=== PATIENT | female | born 1935 | race African-American/Black ===

== ENCOUNTER 2020-09-28 00:21 | Inpatient (IN) | payer MEDICARE, OTHER ==
[~2020-09-28] VITALS: Ht 167.6 cm; Wt 78.5 kg
[2020-09-28] VITALS: BP 168/79
[~2020-09-28 00:21] MED LIST: ALLO100T PO; ASPI-1406 PO; CARV12.545 PO; DILT240C52 PO; FURO40TA5 PO; GABA-532 PO; GLIM2TAB30 PO; HYDR25TA PO; INSNOV SUBCUT; INSU3INS6 SUBCUT; OMEP40CA12 PO; POTA10TA11 PO; RAMI10CA68 PO; SIMV-46 PO; VALS160T28 PO
[2020-09-28] MEDS ORDERED: FUROSEMIDE 40MG/4ML VIAL IV ONE (01:00)
[2020-09-28 01:58] LABS: BASOPHILS % 0.5 % (0.0-2.0); EOSINOPHILS % 0.4 % (0.0-5.0); HEMATOCRIT. 32.2 % (36.0-48.0); HEMOGLOBIN. 10.2 g/dL (12.0-16.0); LYMPHOCYTES % 10.2 % (20.0-50.0); MEAN CORPUSCULAR HEMOGLOBIN 27.6 pg (28.0-32.0); MEAN CORPUSCULAR VOLUME 87.5 fL (81.0-99.0); MONOCYTES % 4.4 % (2.0-8.0); NEUTROPHILS % 84.5 % (40.0-76.0); PLATELET 212 x1000/uL (130-400); RED BLOOD CELL COUNT 3.68 mill/uL (4.2-5.4)
[2020-09-28 02:04] LABS: CHLORIDE 109 mEq/L (98-107)
[2020-09-28] MEDS ORDERED: LABETALOL 5MG/ML SYR 20 MG/4 ML SYRINGE IV SCH (04:15)
[2020-09-28] MEDS ORDERED: ASPIRIN 325MG EC TABLET PO SCH (04:15)
[2020-09-28] MEDS ORDERED: DEXAMETHASONE 10 MG/ML VIAL IV SCH (04:30)
[2020-09-28] MEDS ORDERED: HYDRALAZINE 20MG/ML VIAL IV PRN (06:15)
[2020-09-28] MEDS ORDERED: SIMV10TA97 MT (10:46)
[2020-09-28] MEDS ORDERED: DIPHENHYDRAMINE 50MG/ML VIAL IV PRN (11:00)
[2020-09-28] MEDS ORDERED: ACETAMINOPHEN 650MG SUPP PR PRN (11:00)
[2020-09-28] MEDS ORDERED: ONDANSETRON HCL 4MG/2ML INJ IV PRN (11:00)
[2020-09-28] MEDS ORDERED: LORAZEPAM 0.5MG TABLET PO PRN (11:00)
[2020-09-28] MEDS ORDERED: HYDROCODONE/ACETAMINOPHEN 5/325MG TABLET PO PRN (11:00)
[2020-09-28] MEDS ORDERED: DOCUSATE SODIUM 100MG CAPSULE PO PRN (11:00)
[2020-09-28] MEDS ORDERED: NA PHOS,M-B/NA PHOS,DI-BA ENEMA 118ML PR PRN (11:00)
[2020-09-28] MEDS ORDERED: MAGNESIUM/ALUMINUM HYDROXIDE/SIMETHICONE 30ML UDC PO PRN (11:00)
[2020-09-28] MEDS ORDERED: DEXTROSE 50% WATER 50ML SYRINGE IV PRN (11:00)
[2020-09-28 11:36] VITALS: BP 164/71
[2020-09-28] MEDS ORDERED: NALOXONE HCL 0.4MG/ML VIAL IV PRN (11:45)
[2020-09-28] MEDS: ALBUTEROL 6.7GM HFA INHALER ORI SCH ×2 (12:00→17:42)
[2020-09-28] MEDS ORDERED: ENOXAPARIN 30MG/0.3ML SYR SUBCUT SCH (12:00)
[2020-09-28] MEDS: DEXAMETHASONE 10 MG/ML VIAL IV SCH (12:15)
[2020-09-28] MEDS: AMLODIPINE 5MG TABLET PO SCH (12:15)
[2020-09-28 12:28] LABS: BG BASE EXCESS -2.6 mmol/L (-2.0-2.0); BG CARBOXYHEMOGLOBIN 0.3 % (0.5-1.5); BG DEOXYHEMOGLOBIN 7.6 % (0.0-5.0); BG FRACTION INSPIRED OXYGEN 32; BG METHEMOGLOBIN 0.2 % (0.0-1.5); BG OXYGEN SATURATION 92.4 % (92.0-98.5); BG OXYHEMOGLOBIN 91.9 % (94.0-97.0); BG PCO2 42.7 mmHg (35.0-45.0); BG PH 7.349 (7.350-7.450); BG PO2 65.3 mmHg (75.0-100.0); BG SAMPLE SITE LEFT RADIAL; BG TOTAL HEMOGLOBIN 11.5 g/dL (12.0-18.0); BG VENT MODE NASAL CANNULA
[2020-09-28] MEDS: INSULIN LISPRO 100 UNITS/ML SUBCUT SCH ×3 (12:38→20:46)
[2020-09-28] MEDS: BLOOD SUGAR DIAGNOSTIC STRIP TEST SCH ×3 (12:50→20:42)
[2020-09-28] MEDS: CEFTRIAXONE 1,000 MG in DEXTROSE 5% WATER 50 ML IV SCH (13:30)
[2020-09-28] MEDS: AZITHROMYCIN 500 MG in DEXT 5% WATER 250 ML IV SCH (13:30)
[2020-09-28 16:00] VITALS: BP 165/70
[2020-09-28 16:31] LABS: INR 1.1; PROTHROMBIN TIME 11.4 sec (9.6-11.0)
[2020-09-28 16:50] LABS: CREATINE KINASE MB FRACTION 3.7 ng/mL (0.5-3.6)
[2020-09-28] MEDS: HYDRALAZINE 20MG/ML VIAL IV PRN (17:02)
[2020-09-28 20:00] VITALS: BP 168/79
[2020-09-28] MEDS: CLONIDINE 0.1MG TABLET PO PRN (20:42)
[2020-09-28] MEDS: FAMOTIDINE 20MG TABLET PO SCH (20:42)
[2020-09-28 21:21] LABS: CLARITY URINE CLEAR (CLEAR); COLOR URINE YELLOW (YELLOW); KETONES URINE TRACE (NEGATIVE); LEUKOCYTE ESTERASE URINE NEGATIVE (NEGATIVE); NITRITE URINE NEGATIVE (NEGATIVE); OCCULT BLOOD URINE NEGATIVE (NEGATIVE); PROTEIN URINE 2+ (NEGATIVE); SPECIFIC GRAVITY URINE 1.014 (1.005-1.030); UROBILINOGEN URINE 0.2 E.U./dL (0.2-1.0)
[2020-09-28 21:52] LABS: *AMPHETAMINES SCREEN URINE NEGATIVE (NEGATIVE); *BARBITURATES SCREEN URINE NEGATIVE (NEGATIVE)
[2020-09-28 21:53] LABS: *BENZODIAZEPINES SCREEN URINE NEGATIVE (NEGATIVE); *COCAINE SCREEN URINE NEGATIVE (NEGATIVE); CANNABINOID URINE SCREEN NEGATIVE (NEGATIVE); METHADONE URINE SCREEN NEGATIVE (NEGATIVE); OPIATES URINE SCREEN NEGATIVE (NEGATIVE); PHENCYCLIDINE URINE SCREEN NEGATIVE (NEGATIVE)
[2020-09-29] VITALS (7 sets, daily range): BP systolic 123–184; BP diastolic 72–97
[2020-09-29 00:28] LABS: CREATINE KINASE MB FRACTION 3.1 ng/mL (0.5-3.6)
[2020-09-29] MEDS: HYDRALAZINE 20MG/ML VIAL IV PRN ×2 (01:53→08:02)
[2020-09-29] MEDS: ALBUTEROL 6.7GM HFA INHALER ORI SCH ×4 (05:43→17:24)
[2020-09-29 06:08] LABS: CHLORIDE 109 mEq/L (98-107)
[2020-09-29 06:16] LABS: BASOPHILS % 0.1 % (0.0-2.0); HEMATOCRIT. 31.4 % (36.0-48.0); HEMOGLOBIN. 10.2 g/dL (12.0-16.0); LYMPHOCYTES % 8.6 % (20.0-50.0); MEAN CORPUSCULAR HEMOGLOBIN 27.7 pg (28.0-32.0); MEAN CORPUSCULAR VOLUME 85.4 fL (81.0-99.0); MONOCYTES % 3.9 % (2.0-8.0); NEUTROPHILS % 87.4 % (40.0-76.0); PLATELET 217 x1000/uL (130-400); RED BLOOD CELL COUNT 3.68 mill/uL (4.2-5.4); RED CELL DISTRIBUTION WIDTH 16.7 % (11.6-14.6)
[2020-09-29 06:24] LABS: HDL CHOLESTEROL 69 mg/dL (40-59); LDL CHOLESTEROL 69 mg/dL (5-100); T4 FREE 1.02 ng/dL (0.76-1.46)
[2020-09-29] MEDS: BLOOD SUGAR DIAGNOSTIC STRIP TEST SCH ×4 (06:24→21:20)
[2020-09-29] MEDS: INSULIN LISPRO 100 UNITS/ML SUBCUT SCH ×4 (07:49→21:00)
[2020-09-29] MEDS: ASPIRIN 81MG EC TABLET PO SCH (08:01)
[2020-09-29] MEDS: FUROSEMIDE 40MG/4ML VIAL IV SCH (08:01)
[2020-09-29] MEDS: AMLODIPINE 5MG TABLET PO SCH ×2 (08:02→21:20)
[2020-09-29] MEDS: DEXAMETHASONE 10 MG/ML VIAL IV SCH (08:03)
[2020-09-29] MEDS ORDERED: POTASSIUM CHLORIDE 20MEQ TABLET SR PO SCH (10:45)
[2020-09-29 11:06] LABS: BG BASE EXCESS 0.9 mmol/L (-2.0-2.0); BG CARBOXYHEMOGLOBIN 0.3 % (0.5-1.5); BG DEOXYHEMOGLOBIN 8.8 % (0.0-5.0); BG HCO3 ACT 24.8 mmol/L (22.0-26.0); BG METHEMOGLOBIN 0.3 % (0.0-1.5); BG OXYGEN SATURATION 91.1 % (92.0-98.5); BG OXYHEMOGLOBIN 90.6 % (94.0-97.0); BG PCO2 36.8 mmHg (35.0-45.0); BG PH 7.446 (7.350-7.450); BG PO2 59.6 mmHg (75.0-100.0); BG SAMPLE SITE RIGHT BRACHIAL; BG TOTAL HEMOGLOBIN 11.4 g/dL (12.0-18.0); BG VENT MODE NASAL CANNULA
[2020-09-29] MEDS: ENOXAPARIN 80MG/0.8ML SYR SUBCUT SCH (11:17)
[2020-09-29] MEDS: CEFTRIAXONE 1,000 MG in DEXTROSE 5% WATER 50 ML IV SCH (12:45)
[2020-09-29] MEDS: AZITHROMYCIN 500 MG in DEXT 5% WATER 250 ML IV SCH (12:45)
[2020-09-29] MEDS: HYDRALAZINE HCL 50MG TABLET PO SCH ×2 (13:04→21:20)
[2020-09-29] MEDS: FAMOTIDINE 20MG TABLET PO SCH (21:19)
[2020-09-30] VITALS (10 sets, daily range): BP systolic 138–189; BP diastolic 73–101
[2020-09-30] MEDS: ALBUTEROL 6.7GM HFA INHALER ORI SCH ×4 (01:04→17:08)
[2020-09-30] MEDS: HYDRALAZINE 20MG/ML VIAL IV PRN ×2 (01:06→10:05)
[2020-09-30] MEDS: CLONIDINE 0.1MG TABLET PO PRN (06:25)
[2020-09-30] MEDS: HYDRALAZINE HCL 50MG TABLET PO SCH ×2 (06:25→13:10)
[2020-09-30] MEDS: BLOOD SUGAR DIAGNOSTIC STRIP TEST SCH ×4 (07:40→21:33)
[2020-09-30] MEDS: INSULIN LISPRO 100 UNITS/ML SUBCUT SCH ×4 (08:10→21:40)
[2020-09-30 08:24] LABS: PROTHROMBIN TIME 11.1 sec (9.6-11.0)
[2020-09-30] MEDS: FUROSEMIDE 40MG/4ML VIAL IV SCH (08:35)
[2020-09-30] MEDS: DEXAMETHASONE 10 MG/ML VIAL IV SCH (08:35)
[2020-09-30] MEDS: ASPIRIN 81MG EC TABLET PO SCH (08:35)
[2020-09-30] MEDS: AMLODIPINE 5MG TABLET PO SCH ×2 (08:36→21:33)
[2020-09-30] MEDS: ENOXAPARIN 80MG/0.8ML SYR SUBCUT SCH (10:04)
[2020-09-30] MEDS: CEFTRIAXONE 1,000 MG in DEXTROSE 5% WATER 50 ML IV SCH (11:30)
[2020-09-30] MEDS: AZITHROMYCIN 500 MG in DEXT 5% WATER 250 ML IV SCH (12:00)
[2020-09-30] MEDS: HYDRALAZINE HCL 100MG TABLET PO SCH ×2 (14:38→21:33)
[2020-09-30] MEDS: FAMOTIDINE 20MG TABLET PO SCH (21:33)
[2020-10-01] VITALS (9 sets, daily range): BP systolic 158–188; BP diastolic 74–94
[2020-10-01] MEDS: HYDRALAZINE 20MG/ML VIAL IV PRN ×2 (00:29→08:38)
[2020-10-01] MEDS: ALBUTEROL 6.7GM HFA INHALER ORI SCH ×5 (00:30→23:39)
[2020-10-01] MEDS: HYDRALAZINE HCL 100MG TABLET PO SCH ×3 (05:44→21:09)
[2020-10-01] MEDS: CLONIDINE 0.1MG TABLET PO PRN (05:45)
[2020-10-01] MEDS: BLOOD SUGAR DIAGNOSTIC STRIP TEST SCH ×4 (07:40→21:11)
[2020-10-01] MEDS: INSULIN LISPRO 100 UNITS/ML SUBCUT SCH ×4 (08:10→21:11)
[2020-10-01] MEDS: ASPIRIN 81MG EC TABLET PO SCH (08:37)
[2020-10-01] MEDS: FUROSEMIDE 40MG/4ML VIAL IV SCH (08:37)
[2020-10-01] MEDS: AMLODIPINE 5MG TABLET PO SCH ×2 (08:38→21:08)
[2020-10-01] MEDS: DEXAMETHASONE 10 MG/ML VIAL IV SCH (08:38)
[2020-10-01] MEDS: ENOXAPARIN 80MG/0.8ML SYR SUBCUT SCH (10:41)
[2020-10-01] MEDS ORDERED: CLONIDINE 0.1MG TABLET PO NR (11:23)
[2020-10-01] MEDS: CEFTRIAXONE 1,000 MG in DEXTROSE 5% WATER 50 ML IV SCH (11:30)
[2020-10-01] MEDS: AZITHROMYCIN 500 MG in DEXT 5% WATER 250 ML IV SCH (12:00)
[2020-10-01 13:42] LABS: HEMATOCRIT. 34.1 % (36.0-48.0); HEMOGLOBIN. 10.8 g/dL (12.0-16.0); MEAN CORPUSCULAR HEMOGLOBIN 27.3 pg (28.0-32.0); MEAN CORPUSCULAR VOLUME 86.2 fL (81.0-99.0); MEAN PLATELET VOLUME 8.9 fl (7.4-10.4); PLATELET 214 x1000/uL (130-400); RED BLOOD CELL COUNT 3.95 mill/uL (4.2-5.4); RED CELL DISTRIBUTION WIDTH 16.9 % (11.6-14.6)
[2020-10-01] MEDS: CLONIDINE 0.1MG TABLET PO SCH ×2 (14:00→21:10)
[2020-10-01] MEDS ORDERED: POTASSIUM CHLORIDE 20MEQ/PACKET PO NR (16:00)
[2020-10-01] MEDS: FAMOTIDINE 20MG TABLET PO SCH (21:09)
[2020-10-02] VITALS: BP 160/87
[2020-10-02 00:27] LABS: PLATELET ESTIMATE NORMAL
[2020-10-02 04:00] VITALS: BP 156/78
[2020-10-02] MEDS: CLONIDINE 0.1MG TABLET PO SCH ×3 (06:07→22:28)
[2020-10-02] MEDS: ALBUTEROL 6.7GM HFA INHALER ORI SCH ×3 (06:07→18:05)
[2020-10-02] MEDS: HYDRALAZINE HCL 100MG TABLET PO SCH ×3 (06:07→22:28)
[2020-10-02 08:00] VITALS: BP 169/90
[2020-10-02] MEDS: INSULIN LISPRO 100 UNITS/ML SUBCUT SCH ×4 (08:03→21:35)
[2020-10-02] MEDS: ASPIRIN 81MG EC TABLET PO SCH (08:04)
[2020-10-02] MEDS: FUROSEMIDE 40MG/4ML VIAL IV SCH (08:04)
[2020-10-02] MEDS: DEXAMETHASONE 10 MG/ML VIAL IV SCH (08:05)
[2020-10-02] MEDS: AMLODIPINE 5MG TABLET PO SCH ×2 (08:08→21:34)
[2020-10-02] MEDS: BLOOD SUGAR DIAGNOSTIC STRIP TEST SCH ×4 (08:22→21:35)
[2020-10-02] MEDS: CEFTRIAXONE 1,000 MG in DEXTROSE 5% WATER 50 ML IV SCH (11:54)
[2020-10-02] MEDS: ENOXAPARIN 80MG/0.8ML SYR SUBCUT SCH (11:55)
[2020-10-02 12:00] VITALS: BP 166/92
[2020-10-02] MEDS: AZITHROMYCIN 500 MG in DEXT 5% WATER 250 ML IV SCH (13:57)
[2020-10-02 16:00] VITALS: BP 158/86
[2020-10-02] MEDS ORDERED: INSULIN GLARGINE UD 100 UNITS/ML SYR SUBCUT NR (17:50)
[2020-10-02] MEDS ORDERED: INSULIN LISPRO 100 UNITS/ML SUBCUT NR (18:00)
[2020-10-02 20:00] VITALS: BP 147/83
[2020-10-02] MEDS: FAMOTIDINE 20MG TABLET PO SCH (21:33)
[2020-10-03] VITALS: BP 155/85
[2020-10-03 04:00] VITALS: BP 161/78
[2020-10-03] MEDS: HYDRALAZINE HCL 100MG TABLET PO SCH ×3 (05:11→21:21)
[2020-10-03] MEDS: CLONIDINE 0.1MG TABLET PO SCH ×3 (05:11→21:22)
[2020-10-03] MEDS: ALBUTEROL 6.7GM HFA INHALER ORI SCH ×5 (05:12→23:23)
[2020-10-03] MEDS: INSULIN LISPRO 100 UNITS/ML SUBCUT SCH ×4 (06:41→21:00)
[2020-10-03] MEDS: BLOOD SUGAR DIAGNOSTIC STRIP TEST SCH ×4 (06:41→21:20)
[2020-10-03 06:49] LABS: CHLORIDE 104 mEq/L (98-107)
[2020-10-03 06:54] LABS: HEMATOCRIT. 36.3 % (36.0-48.0); HEMOGLOBIN. 11.4 g/dL (12.0-16.0); MEAN CORPUSCULAR HEMOGLOBIN 27.1 pg (28.0-32.0); MEAN CORPUSCULAR VOLUME 85.8 fL (81.0-99.0); MEAN PLATELET VOLUME 9.6 fl (7.4-10.4); PLATELET 207 x1000/uL (130-400); RED BLOOD CELL COUNT 4.22 mill/uL (4.2-5.4); RED CELL DISTRIBUTION WIDTH 16.5 % (11.6-14.6)
[2020-10-03 08:00] VITALS: BP 169/79
[2020-10-03] MEDS: AMLODIPINE 5MG TABLET PO SCH ×2 (08:58→21:21)
[2020-10-03] MEDS: FUROSEMIDE 40MG/4ML VIAL IV SCH (08:58)
[2020-10-03] MEDS: ASPIRIN 81MG EC TABLET PO SCH (08:58)
[2020-10-03] MEDS: ENOXAPARIN 80MG/0.8ML SYR SUBCUT SCH (11:37)
[2020-10-03] MEDS: CEFTRIAXONE 1,000 MG in DEXTROSE 5% WATER 50 ML IV SCH (11:37)
[2020-10-03 12:00] VITALS: BP 169/82
[2020-10-03] MEDS ORDERED: POTASSIUM CHLORIDE 20MEQ TABLET SR PO NR (14:30)
[2020-10-03 14:58] LABS: BG DEOXYHEMOGLOBIN 12.6 % (0.0-5.0); BG FRACTION INSPIRED OXYGEN 28; BG HCO3 ACT 32.6 mmol/L (22.0-26.0); BG METHEMOGLOBIN 0.1 % (0.0-1.5); BG OXYGEN SATURATION 87.3 % (92.0-98.5); BG OXYHEMOGLOBIN 86.3 % (94.0-97.0); BG PCO2 40.6 mmHg (35.0-45.0); BG PH 7.522 (7.350-7.450); BG PO2 50.3 mmHg (75.0-100.0); BG SAMPLE SITE LEFT BRACHIAL; BG TOTAL HEMOGLOBIN 12.5 g/dL (12.0-18.0); BG VENT MODE NASAL CANNULA
[2020-10-03 16:00] VITALS: BP 172/86
[2020-10-03 20:00] VITALS: BP 190/99
[2020-10-03] MEDS: FAMOTIDINE 20MG TABLET PO SCH (21:22)
[2020-10-03 22:54] LABS: PLATELET ESTIMATE NORMAL
[2020-10-03] MEDS: ACETAMINOPHEN 325MG TABLET PO PRN (23:59)
[2020-10-03] MEDS: HYDRALAZINE 20MG/ML VIAL IV PRN (23:59)
[2020-10-04] VITALS: BP 165/94
[2020-10-04 04:00] VITALS: BP 167/86
[2020-10-04] MEDS: HYDRALAZINE HCL 100MG TABLET PO SCH ×3 (05:08→20:50)
[2020-10-04] MEDS: CLONIDINE 0.1MG TABLET PO SCH ×3 (05:08→20:51)
[2020-10-04] MEDS: ALBUTEROL 6.7GM HFA INHALER ORI SCH ×3 (05:08→18:00)
[2020-10-04 06:57] LABS: HEMATOCRIT. 37.9 % (36.0-48.0); HEMOGLOBIN. 11.7 g/dL (12.0-16.0); MEAN CORPUSCULAR HEMOGLOBIN 27.4 pg (28.0-32.0); MEAN CORPUSCULAR VOLUME 88.7 fL (81.0-99.0); MEAN PLATELET VOLUME 9.7 fl (7.4-10.4); PLATELET 170 x1000/uL (130-400); RED BLOOD CELL COUNT 4.27 mill/uL (4.2-5.4); RED CELL DISTRIBUTION WIDTH 17.1 % (11.6-14.6)
[2020-10-04 08:00] VITALS: BP 175/88
[2020-10-04] MEDS: BLOOD SUGAR DIAGNOSTIC STRIP TEST SCH ×4 (08:14→20:51)
[2020-10-04] MEDS ORDERED: DEXAMETHASONE 10 MG/ML VIAL IV SCH (09:00)
[2020-10-04] MEDS: FUROSEMIDE 40MG/4ML VIAL IV SCH (09:49)
[2020-10-04] MEDS: ASPIRIN 81MG EC TABLET PO SCH (09:50)
[2020-10-04] MEDS: AMLODIPINE 5MG TABLET PO SCH ×2 (09:50→20:51)
[2020-10-04] MEDS: ENOXAPARIN 80MG/0.8ML SYR SUBCUT SCH (09:53)
[2020-10-04] MEDS: INSULIN LISPRO 100 UNITS/ML SUBCUT SCH ×4 (09:54→20:52)
[2020-10-04 12:00] VITALS: BP 160/86
[2020-10-04] MEDS: ACETAMINOPHEN 325MG TABLET PO PRN (13:01)
[2020-10-04 16:00] VITALS: BP 148/79
[2020-10-04 16:56] LABS: PLATELET ESTIMATE NORMAL
[2020-10-04 17:04] LABS: BG BASE EXCESS 6.4 mmol/L (-2.0-2.0); BG CARBOXYHEMOGLOBIN 0.7 % (0.5-1.5); BG DEOXYHEMOGLOBIN 8.9 % (0.0-5.0); BG FRACTION INSPIRED OXYGEN 60; BG HCO3 ACT 30.2 mmol/L (22.0-26.0); BG METHEMOGLOBIN 0.2 % (0.0-1.5); BG OXYHEMOGLOBIN 90.2 % (94.0-97.0); BG PCO2 40.3 mmHg (35.0-45.0); BG PH 7.493 (7.350-7.450); BG PO2 58.1 mmHg (75.0-100.0); BG SAMPLE SITE LEFT RADIAL; BG TOTAL HEMOGLOBIN 13.9 g/dL (12.0-18.0); BG VENT MODE MASK - SIMPLE
[2020-10-04 20:00] VITALS: BP 157/85
[2020-10-04] MEDS: CARVEDILOL 3.125 MG TABLET PO SCH (20:50)
[2020-10-04] MEDS: FAMOTIDINE 20MG TABLET PO SCH (20:50)
[2020-10-04] MEDS: ATORVASTATIN CALCIUM 10MG TABLET PO SCH (20:50)
[2020-10-05] VITALS: BP 157/69
[2020-10-05] MEDS: ALBUTEROL 6.7GM HFA INHALER ORI SCH ×4 (00:18→17:33)
[2020-10-05 04:00] VITALS: BP 152/80
[2020-10-05] MEDS: BLOOD SUGAR DIAGNOSTIC STRIP TEST SCH ×4 (05:17→21:05)
[2020-10-05] MEDS: CLONIDINE 0.1MG TABLET PO SCH ×3 (05:17→21:04)
[2020-10-05] MEDS: HYDRALAZINE HCL 100MG TABLET PO SCH ×3 (05:17→21:04)
[2020-10-05 06:07] LABS: HEMATOCRIT. 35.6 % (36.0-48.0); HEMOGLOBIN. 11.4 g/dL (12.0-16.0); MEAN CORPUSCULAR HEMOGLOBIN 27.5 pg (28.0-32.0); MEAN CORPUSCULAR VOLUME 86.3 fL (81.0-99.0); PLATELET 202 x1000/uL (130-400); RED BLOOD CELL COUNT 4.13 mill/uL (4.2-5.4); RED CELL DISTRIBUTION WIDTH 17.1 % (11.6-14.6)
[2020-10-05 08:00] VITALS: BP 163/82
[2020-10-05] MEDS: CARVEDILOL 3.125 MG TABLET PO SCH ×2 (08:38→21:04)
[2020-10-05] MEDS: AMLODIPINE 5MG TABLET PO SCH ×2 (08:38→21:03)
[2020-10-05] MEDS: FUROSEMIDE 40MG/4ML VIAL IV SCH ×2 (08:38→21:05)
[2020-10-05] MEDS: ASPIRIN 81MG EC TABLET PO SCH (08:38)
[2020-10-05] MEDS: INSULIN LISPRO 100 UNITS/ML SUBCUT SCH ×4 (08:39→21:05)
[2020-10-05 09:09] LABS: PLATELET ESTIMATE NORMAL
[2020-10-05 11:59] LABS: BG BASE EXCESS 8.4 mmol/L (-2.0-2.0); BG CARBOXYHEMOGLOBIN 0.5 % (0.5-1.5); BG DEOXYHEMOGLOBIN 15.3 % (0.0-5.0); BG FRACTION INSPIRED OXYGEN 36; BG HCO3 ACT 32.4 mmol/L (22.0-26.0); BG METHEMOGLOBIN 0.1 % (0.0-1.5); BG OXYGEN SATURATION 84.6 % (92.0-98.5); BG OXYHEMOGLOBIN 84.1 % (94.0-97.0); BG PCO2 42.5 mmHg (35.0-45.0); BG PO2 46.5 mmHg (75.0-100.0); BG SAMPLE SITE LEFT RADIAL; BG TOTAL HEMOGLOBIN 12.4 g/dL (12.0-18.0); BG VENT MODE NASAL CANNULA
[2020-10-05 12:00] VITALS: BP 170/88
[2020-10-05] MEDS: ENOXAPARIN 80MG/0.8ML SYR SUBCUT SCH (12:40)
[2020-10-05 16:00] VITALS: BP_SYST 114; BP_SYST 180; BP_DIAS 73; BP_DIAS 86
[2020-10-05] MEDS ORDERED: INSULIN GLARGINE UD 100 UNITS/ML SYR SUBCUT NR (16:00)
[2020-10-05] MEDS: LOSARTAN POTASSIUM 50 MG TABLET PO SCH (17:31)
[2020-10-05] MEDS: DEXAMETHASONE 4MG/ML 1ML VIAL IV SCH (17:31)
[2020-10-05] MEDS: HYDRALAZINE 20MG/ML VIAL IV PRN (18:23)
[2020-10-05 20:00] VITALS: BP 165/75
[2020-10-05] MEDS: ATORVASTATIN CALCIUM 10MG TABLET PO SCH (21:03)
[2020-10-05] MEDS: IVERMECTIN 3 MG TABLET PO SCH (21:04)
[2020-10-05] MEDS: FAMOTIDINE 20MG TABLET PO SCH (21:04)
[2020-10-06] VITALS: BP 142/88
[2020-10-06] MEDS: ALBUTEROL 6.7GM HFA INHALER ORI SCH ×5 (00:19→23:54)
[2020-10-06 04:00] VITALS: BP 159/91
[2020-10-06] MEDS: BLOOD SUGAR DIAGNOSTIC STRIP TEST SCH ×4 (05:39→20:44)
[2020-10-06] MEDS: CLONIDINE 0.1MG TABLET PO SCH ×3 (05:39→22:07)
[2020-10-06] MEDS: HYDRALAZINE HCL 100MG TABLET PO SCH ×3 (05:39→22:07)
[2020-10-06 07:14] LABS: HEMATOCRIT. 38.2 % (36.0-48.0); HEMOGLOBIN. 12.1 g/dL (12.0-16.0); MEAN CORPUSCULAR HEMOGLOBIN 27.3 pg (28.0-32.0); MEAN CORPUSCULAR VOLUME 86.1 fL (81.0-99.0); MEAN PLATELET VOLUME 9.8 fl (7.4-10.4); PLATELET 271 x1000/uL (130-400); RED BLOOD CELL COUNT 4.43 mill/uL (4.2-5.4)
[2020-10-06 08:00] VITALS: BP 161/98
[2020-10-06 08:06] LABS: BG BASE EXCESS 9.5 mmol/L (-2.0-2.0); BG CARBOXYHEMOGLOBIN 0.4 % (0.5-1.5); BG DEOXYHEMOGLOBIN 17.8 % (0.0-5.0); BG FRACTION INSPIRED OXYGEN 40; BG HCO3 ACT 33.6 mmol/L (22.0-26.0); BG METHEMOGLOBIN 0.2 % (0.0-1.5); BG OXYGEN SATURATION 82.1 % (92.0-98.5); BG OXYHEMOGLOBIN 81.6 % (94.0-97.0); BG PCO2 43.6 mmHg (35.0-45.0); BG PH 7.505 (7.350-7.450); BG PO2 43.8 mmHg (75.0-100.0); BG SAMPLE SITE LEFT BRACHIAL; BG TOTAL HEMOGLOBIN 13.3 g/dL (12.0-18.0); BG VENT MODE NASAL CANNULA
[2020-10-06 08:57] LABS: PLATELET ESTIMATE NORMAL
[2020-10-06] MEDS ORDERED: POTASSIUM CHLORIDE 20MEQ TABLET SR PO NR (09:15)
[2020-10-06] MEDS: ENOXAPARIN 80MG/0.8ML SYR SUBCUT SCH (10:10)
[2020-10-06] MEDS: ASPIRIN 81MG EC TABLET PO SCH (10:11)
[2020-10-06] MEDS: AMLODIPINE 5MG TABLET PO SCH ×2 (10:11→20:34)
[2020-10-06] MEDS: LOSARTAN POTASSIUM 50 MG TABLET PO SCH (10:11)
[2020-10-06] MEDS: CARVEDILOL 3.125 MG TABLET PO SCH ×2 (10:11→20:34)
[2020-10-06] MEDS: DEXAMETHASONE 4MG/ML 1ML VIAL IV SCH (10:12)
[2020-10-06] MEDS: FUROSEMIDE 40MG/4ML VIAL IV SCH (10:17)
[2020-10-06] MEDS: INSULIN GLARGINE UD 100 UNITS/ML SYR SUBCUT SCH (10:18)
[2020-10-06] MEDS: INSULIN LISPRO 100 UNITS/ML SUBCUT SCH ×4 (10:18→20:44)
[2020-10-06 12:00] VITALS: BP 146/91
[2020-10-06] MEDS: IVERMECTIN 3 MG TABLET PO SCH (14:05)
[2020-10-06 16:00] VITALS: BP 124/77
[2020-10-06] MEDS: GUAIFENESIN 200MG/10ML SUGAR FREE UDC PO PRN (17:41)
[2020-10-06 20:00] VITALS: BP 181/103
[2020-10-06] MEDS: ATORVASTATIN CALCIUM 10MG TABLET PO SCH (20:34)
[2020-10-06] MEDS: FAMOTIDINE 20MG TABLET PO SCH (20:34)
[2020-10-07] VITALS (27 sets, daily range): BP systolic 118–181; BP diastolic 63–110
[2020-10-07] MEDS: HYDRALAZINE 20MG/ML VIAL IV PRN (01:36)
[2020-10-07] MEDS: HYDRALAZINE HCL 100MG TABLET PO SCH ×3 (05:43→21:01)
[2020-10-07] MEDS: CLONIDINE 0.1MG TABLET PO SCH ×3 (05:43→21:02)
[2020-10-07] MEDS: ALBUTEROL 6.7GM HFA INHALER ORI SCH ×2 (05:44→12:46)
[2020-10-07] MEDS: BLOOD SUGAR DIAGNOSTIC STRIP TEST SCH ×4 (06:54→20:59)
[2020-10-07 07:45] LABS: HEMATOCRIT. 37.4 % (36.0-48.0); HEMOGLOBIN. 11.6 g/dL (12.0-16.0); MEAN CORPUSCULAR HEMOGLOBIN 26.8 pg (28.0-32.0); MEAN CORPUSCULAR VOLUME 85.9 fL (81.0-99.0); MEAN PLATELET VOLUME 9.5 fl (7.4-10.4); PLATELET 255 x1000/uL (130-400); RED BLOOD CELL COUNT 4.35 mill/uL (4.2-5.4); RED CELL DISTRIBUTION WIDTH 17.1 % (11.6-14.6)
[2020-10-07] MEDS: DEXAMETHASONE 4MG/ML 1ML VIAL IV SCH (08:53)
[2020-10-07] MEDS: INSULIN LISPRO 100 UNITS/ML SUBCUT SCH ×4 (08:53→21:00)
[2020-10-07] MEDS: FUROSEMIDE 40MG/4ML VIAL IV SCH (08:53)
[2020-10-07] MEDS: LOSARTAN POTASSIUM 50 MG TABLET PO SCH (08:54)
[2020-10-07] MEDS: POTASSIUM CHLORIDE 20MEQ TABLET SR PO SCH (08:54)
[2020-10-07] MEDS: ASPIRIN 81MG EC TABLET PO SCH (08:54)
[2020-10-07] MEDS: CARVEDILOL 3.125 MG TABLET PO SCH ×2 (08:54→21:01)
[2020-10-07] MEDS: AMLODIPINE 5MG TABLET PO SCH ×2 (08:55→21:01)
[2020-10-07 09:39] LABS: BG BASE EXCESS 8.1 mmol/L (-2.0-2.0); BG CARBOXYHEMOGLOBIN 0.5 % (0.5-1.5); BG DEOXYHEMOGLOBIN 12.4 % (0.0-5.0); BG HCO3 ACT 32.3 mmol/L (22.0-26.0); BG METHEMOGLOBIN 0.1 % (0.0-1.5); BG OXYGEN SATURATION 87.5 % (92.0-98.5); BG PCO2 42.8 mmHg (35.0-45.0); BG PH 7.495 (7.350-7.450); BG PO2 51.6 mmHg (75.0-100.0); BG SAMPLE SITE RIGHT BRACHIAL; BG TOTAL HEMOGLOBIN 12.8 g/dL (12.0-18.0); BG VENT MODE MASK - SIMPLE
[2020-10-07] MEDS: INSULIN GLARGINE UD 100 UNITS/ML SYR SUBCUT SCH (09:59)
[2020-10-07] MEDS: ENOXAPARIN 80MG/0.8ML SYR SUBCUT SCH (10:00)
[2020-10-07 10:46] LABS: PLATELET ESTIMATE NORMAL
[2020-10-07] MEDS: IVERMECTIN 3 MG TABLET PO SCH (13:09)
[2020-10-07] MEDS: FAMOTIDINE 20MG TABLET PO SCH (21:00)
[2020-10-07] MEDS: ATORVASTATIN CALCIUM 10MG TABLET PO SCH (21:00)
[2020-10-08] VITALS (44 sets, daily range): BP systolic 88–171; BP diastolic 54–112
[2020-10-08] MEDS: HYDRALAZINE HCL 100MG TABLET PO SCH ×3 (05:46→22:02)
[2020-10-08] MEDS: CLONIDINE 0.1MG TABLET PO SCH ×3 (05:47→22:03)
[2020-10-08 05:48] LABS: HEMATOCRIT. 36.4 % (36.0-48.0); HEMOGLOBIN. 11.6 g/dL (12.0-16.0); MEAN CORPUSCULAR VOLUME 84.8 fL (81.0-99.0); MEAN PLATELET VOLUME 9.7 fl (7.4-10.4); PLATELET 295 x1000/uL (130-400); RED BLOOD CELL COUNT 4.29 mill/uL (4.2-5.4)
[2020-10-08] MEDS: ALBUTEROL 6.7GM HFA INHALER ORI SCH ×3 (06:00→22:02)
[2020-10-08] MEDS: INSULIN LISPRO 100 UNITS/ML SUBCUT SCH ×4 (06:02→20:53)
[2020-10-08] MEDS: BLOOD SUGAR DIAGNOSTIC STRIP TEST SCH ×4 (06:02→20:52)
[2020-10-08 09:21] LABS: BG BASE EXCESS 6.7 mmol/L (-2.0-2.0); BG CARBOXYHEMOGLOBIN 0.2 % (0.5-1.5); BG DEOXYHEMOGLOBIN 5.7 % (0.0-5.0); BG FRACTION INSPIRED OXYGEN 99.8; BG HCO3 ACT 31.2 mmol/L (22.0-26.0); BG METHEMOGLOBIN 0.3 % (0.0-1.5); BG OXYGEN SATURATION 94.3 % (92.0-98.5); BG OXYHEMOGLOBIN 93.8 % (94.0-97.0); BG PCO2 44.1 mmHg (35.0-45.0); BG PH 7.467 (7.350-7.450); BG PO2 70.3 mmHg (75.0-100.0); BG SAMPLE SITE RIGHT RADIAL; BG TOTAL HEMOGLOBIN 12.5 g/dL (12.0-18.0); BG VENT MODE MASK - NRB
[2020-10-08] MEDS: DEXAMETHASONE 4MG/ML 1ML VIAL IV SCH (09:24)
[2020-10-08] MEDS: LOSARTAN POTASSIUM 50 MG TABLET PO SCH (09:25)
[2020-10-08] MEDS: AMLODIPINE 5MG TABLET PO SCH ×2 (09:25→20:51)
[2020-10-08] MEDS: POTASSIUM CHLORIDE 20MEQ TABLET SR PO SCH (09:25)
[2020-10-08] MEDS: ASPIRIN 81MG EC TABLET PO SCH (09:25)
[2020-10-08] MEDS: CARVEDILOL 3.125 MG TABLET PO SCH ×2 (09:25→20:52)
[2020-10-08] MEDS: FUROSEMIDE 40MG/4ML VIAL IV SCH (09:27)
[2020-10-08] MEDS: INSULIN GLARGINE UD 100 UNITS/ML SYR SUBCUT SCH (09:33)
[2020-10-08] MEDS: ENOXAPARIN 80MG/0.8ML SYR SUBCUT SCH (11:39)
[2020-10-08 12:32] LABS: PLATELET ESTIMATE NORMAL
[2020-10-08] MEDS: IVERMECTIN 3 MG TABLET PO SCH (13:23)
[2020-10-08] MEDS: ATORVASTATIN CALCIUM 10MG TABLET PO SCH (20:51)
[2020-10-08] MEDS: FAMOTIDINE 20MG TABLET PO SCH (20:52)
[2020-10-09] VITALS: BP 123/67
[2020-10-09] MEDS ORDERED: SODIUM CHLORIDE 0.45% 1,000 ML IV SCH (01:00)
[2020-10-09 04:00] VITALS: BP 125/82
[2020-10-09] MEDS: ALBUTEROL 6.7GM HFA INHALER ORI SCH ×3 (05:49→17:42)
[2020-10-09] MEDS: CLONIDINE 0.1MG TABLET PO SCH ×2 (05:50→13:34)
[2020-10-09] MEDS: HYDRALAZINE HCL 100MG TABLET PO SCH ×2 (05:51→13:34)
[2020-10-09] MEDS: BLOOD SUGAR DIAGNOSTIC STRIP TEST SCH ×4 (07:40→21:06)
[2020-10-09 08:00] VITALS: BP 141/86
[2020-10-09] MEDS: INSULIN LISPRO 100 UNITS/ML SUBCUT SCH ×4 (08:10→21:18)
[2020-10-09 08:57] LABS: HEMATOCRIT. 39.5 % (36.0-48.0); HEMOGLOBIN. 12.1 g/dL (12.0-16.0); MEAN CORPUSCULAR HEMOGLOBIN 26.5 pg (28.0-32.0); MEAN CORPUSCULAR VOLUME 86.4 fL (81.0-99.0); MEAN PLATELET VOLUME 9.7 fl (7.4-10.4); PLATELET 296 x1000/uL (130-400); RED BLOOD CELL COUNT 4.58 mill/uL (4.2-5.4)
[2020-10-09] MEDS: ASPIRIN 81MG EC TABLET PO SCH (10:17)
[2020-10-09] MEDS: DEXAMETHASONE 4MG/ML 1ML VIAL IV SCH (10:18)
[2020-10-09] MEDS: POTASSIUM CHLORIDE 20MEQ TABLET SR PO SCH (10:18)
[2020-10-09] MEDS: LOSARTAN POTASSIUM 50 MG TABLET PO SCH (10:18)
[2020-10-09] MEDS: CARVEDILOL 3.125 MG TABLET PO SCH ×2 (10:18→21:19)
[2020-10-09] MEDS: AMLODIPINE 5MG TABLET PO SCH ×2 (10:18→21:19)
[2020-10-09] MEDS: ENOXAPARIN 80MG/0.8ML SYR SUBCUT SCH (10:19)
[2020-10-09] MEDS: INSULIN GLARGINE UD 100 UNITS/ML SYR SUBCUT SCH (10:20)
[2020-10-09] MEDS ORDERED: DEXT 5%/0.45% NACL 1000ML 1,000 ML IV SCH (11:30)
[2020-10-09 12:00] VITALS: BP 133/88
[2020-10-09] MEDS: IVERMECTIN 3 MG TABLET PO SCH (13:33)
[2020-10-09] MEDS: DEXTROSE 5% WATER 1,000 ML IV SCH (14:43)
[2020-10-09 15:34] LABS: BG BASE EXCESS 5.1 mmol/L (-2.0-2.0); BG CARBOXYHEMOGLOBIN 0.2 % (0.5-1.5); BG DEOXYHEMOGLOBIN 12.4 % (0.0-5.0); BG HCO3 ACT 30.6 mmol/L (22.0-26.0); BG METHEMOGLOBIN 0.5 % (0.0-1.5); BG OXYGEN SATURATION 87.5 % (92.0-98.5); BG OXYHEMOGLOBIN 86.9 % (94.0-97.0); BG PCO2 48.8 mmHg (35.0-45.0); BG PH 7.415 (7.350-7.450); BG PO2 56.8 mmHg (75.0-100.0); BG SAMPLE SITE RIGHT RADIAL; BG TOTAL HEMOGLOBIN 13.1 g/dL (12.0-18.0); BG VENT MODE MASK - NRB
[2020-10-09 16:00] VITALS: BP 119/75
[2020-10-09 20:00] VITALS: BP 144/84
[2020-10-09] MEDS: FAMOTIDINE 20MG TABLET PO SCH (21:19)
[2020-10-09] MEDS: ATORVASTATIN CALCIUM 10MG TABLET PO SCH (21:19)
[2020-10-09 21:30] LABS: PLATELET ESTIMATE NORMAL
[2020-10-10] VITALS (7 sets, daily range): BP systolic 111–152; BP diastolic 75–84
[2020-10-10] MEDS: HYDRALAZINE HCL 100MG TABLET PO SCH ×4 (02:46→21:38)
[2020-10-10] MEDS: ALBUTEROL 6.7GM HFA INHALER ORI SCH ×5 (02:47→23:56)
[2020-10-10] MEDS: DEXTROSE 5% WATER 1,000 ML IV SCH ×2 (02:47→18:08)
[2020-10-10] MEDS: CLONIDINE 0.1MG TABLET PO SCH ×4 (02:47→21:38)
[2020-10-10 06:41] LABS: HEMATOCRIT. 39.1 % (36.0-48.0); HEMOGLOBIN. 11.8 g/dL (12.0-16.0); MEAN CORPUSCULAR HEMOGLOBIN 26.7 pg (28.0-32.0); MEAN CORPUSCULAR VOLUME 87.9 fL (81.0-99.0); MEAN PLATELET VOLUME 10.4 fl (7.4-10.4); PLATELET 260 x1000/uL (130-400); RED BLOOD CELL COUNT 4.44 mill/uL (4.2-5.4); RED CELL DISTRIBUTION WIDTH 17.5 % (11.6-14.6)
[2020-10-10] MEDS: BLOOD SUGAR DIAGNOSTIC STRIP TEST SCH ×4 (07:40→21:39)
[2020-10-10] MEDS: POTASSIUM CHLORIDE 20MEQ TABLET SR PO SCH (09:02)
[2020-10-10] MEDS: INSULIN LISPRO 100 UNITS/ML SUBCUT SCH ×4 (09:03→21:00)
[2020-10-10] MEDS: DEXAMETHASONE 4MG/ML 1ML VIAL IV SCH (09:03)
[2020-10-10] MEDS: CARVEDILOL 3.125 MG TABLET PO SCH ×2 (09:03→21:37)
[2020-10-10] MEDS: AMLODIPINE 5MG TABLET PO SCH ×2 (09:04→21:38)
[2020-10-10] MEDS: ASPIRIN 81MG EC TABLET PO SCH (09:04)
[2020-10-10] MEDS: LOSARTAN POTASSIUM 50 MG TABLET PO SCH (09:04)
[2020-10-10 09:28] LABS: BG BASE EXCESS 6.9 mmol/L (-2.0-2.0); BG CARBOXYHEMOGLOBIN 0.8 % (0.5-1.5); BG DEOXYHEMOGLOBIN 10.6 % (0.0-5.0); BG FRACTION INSPIRED OXYGEN 100; BG HCO3 ACT 31.3 mmol/L (22.0-26.0); BG METHEMOGLOBIN 0.3 % (0.0-1.5); BG OXYGEN SATURATION 89.3 % (92.0-98.5); BG OXYHEMOGLOBIN 88.3 % (94.0-97.0); BG PCO2 43.8 mmHg (35.0-45.0); BG PH 7.472 (7.350-7.450); BG PO2 56.4 mmHg (75.0-100.0); BG SAMPLE SITE RIGHT RADIAL; BG VENT MODE MASK - NRB
[2020-10-10] MEDS: ENOXAPARIN 80MG/0.8ML SYR SUBCUT SCH (10:49)
[2020-10-10] MEDS: INSULIN GLARGINE UD 100 UNITS/ML SYR SUBCUT SCH (10:54)
[2020-10-10 18:08] LABS: PLATELET ESTIMATE NORMAL
[2020-10-10] MEDS: ATORVASTATIN CALCIUM 10MG TABLET PO SCH (21:37)
[2020-10-10] MEDS: FAMOTIDINE 20MG TABLET PO SCH (21:38)
[2020-10-10] MEDS: GUAIFENESIN 200MG/10ML SUGAR FREE UDC PO PRN (21:46)
[2020-10-11] VITALS (53 sets, daily range): BP systolic 109–153; BP diastolic 59–87
[2020-10-11] MEDS: HYDRALAZINE HCL 100MG TABLET PO SCH ×3 (06:00→21:23)
[2020-10-11] MEDS: ALBUTEROL 6.7GM HFA INHALER ORI SCH ×2 (06:00→20:48)
[2020-10-11] MEDS: CLONIDINE 0.1MG TABLET PO SCH ×3 (06:00→21:23)
[2020-10-11] MEDS: DEXTROSE 5% WATER 1,000 ML IV SCH ×2 (06:30→18:44)
[2020-10-11] MEDS: BLOOD SUGAR DIAGNOSTIC STRIP TEST SCH ×4 (07:25→20:24)
[2020-10-11 07:30] LABS: HEMATOCRIT. 36.7 % (36.0-48.0); HEMOGLOBIN. 11.3 g/dL (12.0-16.0); MEAN CORPUSCULAR HEMOGLOBIN 26.7 pg (28.0-32.0); MEAN PLATELET VOLUME 10.3 fl (7.4-10.4); PLATELET 257 x1000/uL (130-400); RED BLOOD CELL COUNT 4.22 mill/uL (4.2-5.4); RED CELL DISTRIBUTION WIDTH 17.5 % (11.6-14.6)
[2020-10-11] MEDS ORDERED: NOREPINEPHRINE 8 MG in DEXT 5% WATER 242 ML IV PRN (07:30)
[2020-10-11 07:47] LABS: PHOSPHORUS 2.8 mg/dL (2.5-4.9)
[2020-10-11 07:55] LABS: BG CARBOXYHEMOGLOBIN 0.1 % (0.5-1.5); BG FRACTION INSPIRED OXYGEN 100; BG HCO3 ACT 17.9 mmol/L (22.0-26.0); BG METHEMOGLOBIN 0.1 % (0.0-1.5); BG OXYHEMOGLOBIN 96.8 % (94.0-97.0); BG PCO2 30.5 mmHg (35.0-45.0); BG PH 7.387 (7.350-7.450); BG PO2 98.8 mmHg (75.0-100.0); BG SAMPLE SITE LEFT RADIAL; BG TOTAL HEMOGLOBIN 12.1 g/dL (12.0-18.0); BG VENT MODE VENT - AC
[2020-10-11] MEDS: INSULIN LISPRO 100 UNITS/ML SUBCUT SCH ×4 (08:10→20:31)
[2020-10-11 08:48] LABS: PLATELET ESTIMATE NORMAL
[2020-10-11] MEDS: CARVEDILOL 3.125 MG TABLET PO SCH ×2 (09:00→20:33)
[2020-10-11] MEDS: LOSARTAN POTASSIUM 50 MG TABLET PO SCH (09:00)
[2020-10-11] MEDS: AMLODIPINE 5MG TABLET PO SCH ×2 (09:00→20:32)
[2020-10-11] MEDS ORDERED: LIDOCAINE HCL 1% 20ML VIAL (Pyxis) INJ ONE (11:20)
[2020-10-11] MEDS: ASPIRIN 81MG EC TABLET PO SCH (12:02)
[2020-10-11] MEDS: DEXAMETHASONE 4MG/ML 1ML VIAL IV SCH (12:02)
[2020-10-11] MEDS: POTASSIUM CHLORIDE 20MEQ/PACKET PO SCH (12:02)
[2020-10-11] MEDS: ENOXAPARIN 80MG/0.8ML SYR SUBCUT SCH (12:04)
[2020-10-11] MEDS ORDERED: MIDAZOLAM HCL 100 MG in SODIUM CHLORIDE 0.9% 80 ML IV PRN (13:45)
[2020-10-11] MEDS ORDERED: FENTANYL CITRATE/PF 1,000 MCG in SODIUM CHLORIDE 0.9% 80 ML IV PRN (13:45)
[2020-10-11] MEDS: INSULIN GLARGINE UD 100 UNITS/ML SYR SUBCUT SCH (13:50)
[2020-10-11] MEDS ORDERED: FENTANYL CITRATE 2,500 MCG in SODIUM CHLORIDE 0.9% 200 ML IV PRN (14:00)
[2020-10-11 14:37] LABS: BG BASE EXCESS 0.8 mmol/L (-2.0-2.0); BG CARBOXYHEMOGLOBIN 0.1 % (0.5-1.5); BG DEOXYHEMOGLOBIN 2.3 % (0.0-5.0); BG FRACTION INSPIRED OXYGEN 100; BG HCO3 ACT 24.3 mmol/L (22.0-26.0); BG OXYGEN SATURATION 97.7 % (92.0-98.5); BG OXYHEMOGLOBIN 97.6 % (94.0-97.0); BG PH 7.459 (7.350-7.450); BG PO2 111.7 mmHg (75.0-100.0); BG SAMPLE SITE LEFT RADIAL; BG TOTAL HEMOGLOBIN 12.6 g/dL (12.0-18.0); BG TOTAL RESPIRATORY RATE 26 b/min; BG VENT MODE VENT - AC
[2020-10-11] MEDS: PIPERACILLIN/TAZOBACTAM 3.375 G in DEXTROSE 5% WATER 50 ML IV SCH (20:32)
[2020-10-11] MEDS: FAMOTIDINE 20MG TABLET PO SCH (20:32)
[2020-10-11] MEDS: ATORVASTATIN CALCIUM 10MG TABLET PO SCH (20:32)
[2020-10-12] VITALS (89 sets, daily range): BP systolic 83–184; BP diastolic 49–131
[2020-10-12] MEDS: ALBUTEROL 6.7GM HFA INHALER ORI SCH ×2 (00:38→08:29)
[2020-10-12 05:03] LABS: HEMATOCRIT. 34.2 % (36.0-48.0); HEMOGLOBIN. 10.6 g/dL (12.0-16.0); MEAN CORPUSCULAR HEMOGLOBIN 26.1 pg (28.0-32.0); MEAN CORPUSCULAR VOLUME 84.2 fL (81.0-99.0); MEAN PLATELET VOLUME 10.2 fl (7.4-10.4); PLATELET 227 x1000/uL (130-400); RED BLOOD CELL COUNT 4.06 mill/uL (4.2-5.4); RED CELL DISTRIBUTION WIDTH 17.1 % (11.6-14.6)
[2020-10-12] MEDS: CLONIDINE 0.1MG TABLET PO SCH ×3 (06:00→21:28)
[2020-10-12] MEDS: HYDRALAZINE HCL 100MG TABLET PO SCH ×3 (06:00→21:28)
[2020-10-12] MEDS: BLOOD SUGAR DIAGNOSTIC STRIP TEST SCH ×4 (06:08→21:21)
[2020-10-12] MEDS: INSULIN LISPRO 100 UNITS/ML SUBCUT SCH ×4 (06:08→21:29)
[2020-10-12 07:15] LABS: PLATELET ESTIMATE NORMAL
[2020-10-12] MEDS: CARVEDILOL 3.125 MG TABLET PO SCH ×2 (09:00→20:13)
[2020-10-12] MEDS: AMLODIPINE 5MG TABLET PO SCH ×2 (09:00→20:14)
[2020-10-12] MEDS: LOSARTAN POTASSIUM 50 MG TABLET PO SCH (09:00)
[2020-10-12] MEDS: PIPERACILLIN/TAZOBACTAM 3.375 G in DEXTROSE 5% WATER 50 ML IV SCH ×2 (09:20→20:13)
[2020-10-12] MEDS: DEXTROSE 5% WATER 1,000 ML IV SCH ×2 (09:20→23:07)
[2020-10-12] MEDS: DEXAMETHASONE 4MG/ML 1ML VIAL IV SCH (09:21)
[2020-10-12] MEDS: ASPIRIN 81MG EC TABLET PO SCH (09:21)
[2020-10-12] MEDS: INSULIN GLARGINE UD 100 UNITS/ML SYR SUBCUT SCH (09:23)
[2020-10-12 09:45] LABS: BG BASE EXCESS 1.8 mmol/L (-2.0-2.0); BG CARBOXYHEMOGLOBIN 0.1 % (0.5-1.5); BG DEOXYHEMOGLOBIN 4.1 % (0.0-5.0); BG FRACTION INSPIRED OXYGEN 90; BG HCO3 ACT 25.6 mmol/L (22.0-26.0); BG METHEMOGLOBIN 0.3 % (0.0-1.5); BG OXYGEN SATURATION 95.9 % (92.0-98.5); BG OXYHEMOGLOBIN 95.5 % (94.0-97.0); BG PCO2 37.4 mmHg (35.0-45.0); BG PH 7.454 (7.350-7.450); BG PO2 83.5 mmHg (75.0-100.0); BG SAMPLE SITE RIGHT RADIAL; BG TOTAL HEMOGLOBIN 11.5 g/dL (12.0-18.0); BG VENT MODE VENT - AC
[2020-10-12] MEDS: ENOXAPARIN 80MG/0.8ML SYR SUBCUT SCH (13:52)
[2020-10-12] MEDS: METRONIDAZOLE 500MG TABLET PO SCH ×2 (13:52→20:13)
[2020-10-12] MEDS: ATORVASTATIN CALCIUM 10MG TABLET PO SCH (20:13)
[2020-10-12] MEDS: FAMOTIDINE 20MG TABLET PO SCH (20:13)
[2020-10-12] MEDS: IPRATROPIUM/ALBUTEROL 0.5-3(2.5)MG/3ML NEB HHN SCH (21:02)
[2020-10-13] VITALS (95 sets, daily range): BP systolic 96–176; BP diastolic 52–95
[2020-10-13] MEDS: IPRATROPIUM/ALBUTEROL 0.5-3(2.5)MG/3ML NEB HHN SCH ×4 (01:18→21:03)
[2020-10-13 05:39] LABS: HEMATOCRIT. 32.8 % (36.0-48.0); HEMOGLOBIN. 10.1 g/dL (12.0-16.0); MEAN CORPUSCULAR VOLUME 84.2 fL (81.0-99.0); MEAN PLATELET VOLUME 10.5 fl (7.4-10.4); PLATELET 203 x1000/uL (130-400)
[2020-10-13] MEDS: HYDRALAZINE HCL 100MG TABLET PO SCH ×3 (05:52→21:06)
[2020-10-13] MEDS: BLOOD SUGAR DIAGNOSTIC STRIP TEST SCH ×4 (05:52→23:07)
[2020-10-13] MEDS: CLONIDINE 0.1MG TABLET PO SCH ×3 (05:52→21:08)
[2020-10-13 05:54] LABS: PHOSPHORUS 3.6 mg/dL (2.5-4.9)
[2020-10-13] MEDS: INSULIN LISPRO 100 UNITS/ML SUBCUT SCH ×4 (07:00→23:09)
[2020-10-13] MEDS: CARVEDILOL 3.125 MG TABLET PO SCH ×2 (08:26→21:08)
[2020-10-13] MEDS: AMLODIPINE 5MG TABLET PO SCH ×2 (08:27→21:07)
[2020-10-13] MEDS: LOSARTAN POTASSIUM 50 MG TABLET PO SCH (08:27)
[2020-10-13 08:29] LABS: BG BASE EXCESS -0.4 mmol/L (-2.0-2.0); BG CARBOXYHEMOGLOBIN 0.3 % (0.5-1.5); BG DEOXYHEMOGLOBIN 9.1 % (0.0-5.0); BG HCO3 ACT 23.2 mmol/L (22.0-26.0); BG METHEMOGLOBIN 0.3 % (0.0-1.5); BG OXYGEN SATURATION 90.8 % (92.0-98.5); BG OXYHEMOGLOBIN 90.3 % (94.0-97.0); BG PCO2 34.3 mmHg (35.0-45.0); BG PH 7.448 (7.350-7.450); BG PO2 61.3 mmHg (75.0-100.0); BG SAMPLE SITE RIGHT RADIAL; BG TOTAL HEMOGLOBIN 10.5 g/dL (12.0-18.0); BG VENT MODE VENT - AC
[2020-10-13] MEDS: METRONIDAZOLE 500MG TABLET PO SCH (08:32)
[2020-10-13] MEDS: PIPERACILLIN/TAZOBACTAM 3.375 G in DEXTROSE 5% WATER 50 ML IV SCH (08:32)
[2020-10-13] MEDS: ASPIRIN 81MG EC TABLET PO SCH (08:33)
[2020-10-13] MEDS: POTASSIUM CHLORIDE 20MEQ/PACKET PO SCH (08:33)
[2020-10-13] MEDS: DEXAMETHASONE 4MG/ML 1ML VIAL IV SCH (08:33)
[2020-10-13] MEDS: INSULIN GLARGINE UD 100 UNITS/ML SYR SUBCUT SCH (08:34)
[2020-10-13 10:43] LABS: PLATELET ESTIMATE NORMAL
[2020-10-13] MEDS: DEXTROSE 5% WATER 1,000 ML IV SCH (13:00)
[2020-10-13] MEDS: ENOXAPARIN 80MG/0.8ML SYR SUBCUT SCH (14:25)
[2020-10-13] MEDS ORDERED: MEROPENEM 1,000 MG in SODIUM CHLORIDE 0.9% 100 ML IV SCH (18:00)
[2020-10-13] MEDS: ATORVASTATIN CALCIUM 10MG TABLET PO SCH (21:07)
[2020-10-13] MEDS: FAMOTIDINE 20MG TABLET PO SCH (21:07)
[2020-10-14] VITALS (59 sets, daily range): BP systolic 87–186; BP diastolic 48–87
[2020-10-14] MEDS: IPRATROPIUM/ALBUTEROL 0.5-3(2.5)MG/3ML NEB HHN SCH ×2 (03:09→09:50)
[2020-10-14 05:13] LABS: HEMATOCRIT. 30.5 % (36.0-48.0); HEMOGLOBIN. 9.8 g/dL (12.0-16.0); MEAN CORPUSCULAR VOLUME 84.1 fL (81.0-99.0); MEAN PLATELET VOLUME 10.4 fl (7.4-10.4); PLATELET 203 x1000/uL (130-400); RED BLOOD CELL COUNT 3.62 mill/uL (4.2-5.4); RED CELL DISTRIBUTION WIDTH 17.5 % (11.6-14.6)
[2020-10-14 05:26] LABS: CHLORIDE 111 mEq/L (98-107)
[2020-10-14 05:34] LABS: PHOSPHORUS 4.4 mg/dL (2.5-4.9)
[2020-10-14] MEDS: CLONIDINE 0.1MG TABLET PO SCH (05:40)
[2020-10-14] MEDS: HYDRALAZINE HCL 100MG TABLET PO SCH (05:40)
[2020-10-14] MEDS: INSULIN LISPRO 100 UNITS/ML SUBCUT SCH ×2 (05:41→12:00)
[2020-10-14] MEDS: BLOOD SUGAR DIAGNOSTIC STRIP TEST SCH ×2 (05:41→12:22)
[2020-10-14] MEDS: LOSARTAN POTASSIUM 50 MG TABLET PO SCH (08:24)
[2020-10-14] MEDS: AMLODIPINE 5MG TABLET PO SCH (08:25)
[2020-10-14] MEDS: INSULIN GLARGINE UD 100 UNITS/ML SYR SUBCUT SCH (09:13)
[2020-10-14] MEDS: DEXAMETHASONE 4MG/ML 1ML VIAL IV SCH (09:13)
[2020-10-14] MEDS: ASPIRIN 81MG EC TABLET PO SCH (09:13)
[2020-10-14] MEDS: DEXTROSE 5% WATER 1,000 ML IV SCH (09:14)
[2020-10-14] MEDS: CARVEDILOL 3.125 MG TABLET PO SCH (09:14)
[2020-10-14 10:14] LABS: BG BASE EXCESS -4.2 mmol/L (-2.0-2.0); BG CARBOXYHEMOGLOBIN 0.3 % (0.5-1.5); BG DEOXYHEMOGLOBIN 6.8 % (0.0-5.0); BG FRACTION INSPIRED OXYGEN 100; BG METHEMOGLOBIN 0.3 % (0.0-1.5); BG OXYGEN SATURATION 93.2 % (92.0-98.5); BG OXYHEMOGLOBIN 92.6 % (94.0-97.0); BG PCO2 44.7 mmHg (35.0-45.0); BG PH 7.309 (7.350-7.450); BG PO2 73.6 mmHg (75.0-100.0); BG SAMPLE SITE LEFT RADIAL; BG TOTAL HEMOGLOBIN 10.3 g/dL (12.0-18.0); BG VENT MODE VENT - AC
[2020-10-14] MEDS: ENOXAPARIN 80MG/0.8ML SYR SUBCUT SCH (12:00)
[2020-10-14 13:21] LABS: PLATELET ESTIMATE NORMAL
[2020-10-14] MEDS ORDERED: MORPHINE SULFATE 100 MG in DEXT 5% WATER 90 ML IV PRN (14:15)
[2020-10-14] MEDS ORDERED: LORAZEPAM 2MG/ML CPJ IV PRN (14:15)
[2020-10-15] VITALS: BP 101/49
== END 2020-10-15 03:00 | DRG 871 ==
LOC: ER 00:21 → MICUSO 04:21 → 7WST 08:38 → MICUSO 10-07 16:17 → 7WST 10-08 21:20 → MICUNO 10-11 10:19 → 7WST 10-14 19:50
PROVIDERS: ADMIT Internal Medicine; ATTEND Internal Medicine
PROC: 5A09357 Assistance with Respiratory Ventilation, Less than 24 Consecutive Hours, Continuous Positive Airway Pressure (ICD-10-PCS; 2020-10-10)
PROC: 5A1945Z Respiratory Ventilation, 24-96 Consecutive Hours (ICD-10-PCS; principal; 2020-10-11)
PROC: 0BH17EZ Insertion of Endotracheal Airway into Trachea, Via Natural or Artificial Opening (ICD-10-PCS; 2020-10-11)
PROC: 05H933Z Insertion of Infusion Device into Right Brachial Vein, Percutaneous Approach (ICD-10-PCS; 2020-10-11)
PROC: B54MZZA Ultrasonography of Right Upper Extremity Veins, Guidance (ICD-10-PCS; 2020-10-11)
PROC: 5A09357 Assistance with Respiratory Ventilation, Less than 24 Consecutive Hours, Continuous Positive Airway Pressure (ICD-10-PCS; 2020-10-11)
DX: A41.89 Other specified sepsis (principal); U07.1 COVID-19; J12.82 Pneumonia due to coronavirus disease 2019; J96.01 Acute respiratory failure with hypoxia; I21.4 Non-ST elevation (NSTEMI) myocardial infarction; G93.41 Metabolic encephalopathy; I42.9 Cardiomyopathy, unspecified; D68.59 Other primary thrombophilia; I13.0 Hypertensive heart and chronic kidney disease with heart failure and stage 1 through stage 4 chronic kidney disease, or unspecified chronic kidney disease; I50.20 Unspecified systolic (congestive) heart failure; N17.9 Acute kidney failure, unspecified; E87.0 Hyperosmolality and hypernatremia; E87.3 Alkalosis; D64.9 Anemia, unspecified; Z66 Do not resuscitate; Z51.5 Encounter for palliative care; N18.30 Chronic kidney disease, stage 3 unspecified; E11.22 Type 2 diabetes mellitus with diabetic chronic kidney disease; E11.65 Type 2 diabetes mellitus with hyperglycemia; E78.5 Hyperlipidemia, unspecified; T50.2X5A Adverse effect of carbonic-anhydrase inhibitors, benzothiadiazides and other diuretics, initial encounter; R19.7 Diarrhea, unspecified; M10.9 Gout, unspecified; E87.6 Hypokalemia; E11.649 Type 2 diabetes mellitus with hypoglycemia without coma; I25.10 Atherosclerotic heart disease of native coronary artery without angina pectoris; I27.20 Pulmonary hypertension, unspecified; Z95.5 Presence of coronary angioplasty implant and graft; Y92.89 Other specified places as the place of occurrence of the external cause; Z79.82 Long term (current) use of aspirin; Z79.84 Long term (current) use of oral hypoglycemic drugs; Z79.899 Other long term (current) drug therapy; Z82.49 Family history of ischemic heart disease and other diseases of the circulatory system; Z83.3 Family history of diabetes mellitus
CPT/HCPCS: 31500; 36415; 36600; 71045; 76770; 76937; 78580; 80048; 80053; 80061; 80305; 81003; 82330; 82375; 82533; 82550; 82553; 82728; 82805; 82962; 83036; 83615; 83735; 83880; 84100; 84145; 84439; 84443; 84484; 85025; 85379; 86140; 87426; 93005; 93970; 94002; 94003; 94640; 94660; 97116; 97162; 97530; 99285; A6261; C1725; C1893; J0360; J0456; J0696; J1100; J1200; J1650; J1815; J1940; J2185; J2250; J2543; J3010; J3490; J7040; J7050; J7060; J7070; U0003; U0005; A4315